=== PATIENT | male | born 1990 ===

== ENCOUNTER 2025-02-01 12:27 | Outpatient (CLI) | payer OTHER, SELFPAY ==
--- NOTE | ~2025-02-01 | XR_ITS ---
XR cervical spine 4-5V Ordering provider: Tommie Lao, [place] History: . Cervical brachial syndrome . Comparison: None. FINDINGS: VERTEBRAL BODIES: Normal height and alignment. No visible fracture or subluxation. The dens is intact . DISK SPACES: Well maintained. PARASPINOUS SOFT TISSUES: No prevertebral soft tissue swelling. IMPRESSION: No acute osseous abnormality cervical spine. Reviewed, dictated and finalized at location A.
== END 2025-02-01 12:28 | disposition home or self-care (01) ==
LOC: MICIMG 12:33
PROVIDERS: PCP Chiropractor; Visit Provider Chiropractor
DX: R42 Dizziness and giddiness (principal)
CPT/HCPCS: 72050